=== PATIENT | female | born 1985 | race Caucasian/White ===

== ENCOUNTER 2016-08-02 05:37 | Emergency (ER) | payer MEDICAID ==
[~2016-08-02] VITALS: Ht 147.3 cm; Wt 110.0 kg
[~2016-08-02 05:37] MED LIST: ALBU8.5H4 IH; CHOL200020 PO; IBUP-1827 PO; IBUP800T28 PO; LOPE2TAB32 PO; LORA10TA7 PO; OXYC-245 PO; PRAM0.5T3 PO; PROM25TA14 PO; TRAM50TA2 PO; TRAZ-118 PO; ZONI50CA3 PO
[2016-08-02 05:38] VITALS: BP 146/96; PULSE 102; RESP 19; O2SAT 96
[2016-08-02] MEDS ORDERED: HYDROmorphone 1 mg/mL Inj IVPUSH ONE ×2 (06:20→08:15)
[2016-08-02] MEDS ORDERED: 0.9% Sodium Chloride 1,000 ML IV ONE (06:55)
[2016-08-02 07:01] LABS: Mean Corpuscular Hemoglobin 29.8 pg (27.0-35.0); Mean Corpuscular Volume 91.5 fL (81-100)
--- NOTE | 2016-08-02 07:03 | ED.REPORT ---
HPI-Abd Pain F Under 40 Date of Service Aug 02, 2016 ED Provider: Eileen Clark MD History of Present Illness: Patient is a 31 y.o. F past medical history of PCOS, OA, fibromyalgia. Present to Ed with four weeks of abdominal pain assoaciated with left ovarian cyst, increased pain in past two days. Last seen by PCP last week, who obitained a pelvic US, reported cyst 5 cm. Patient located pain to left adnexa, rated severe, rated 10/10 "makes me want to scream," "constant dull achy pain with a sharp pain every so often" without radiation. Associated with nausea, vomiting, sweating, decreased urination. Denies diarrhea, fever, chills, vaginal bleeding, discharge. Patient has tried oxycodone with relief for an hour, ibuprofen with out relief. Made wose by coughing, moving straighten legs out. Nothing makes it better. Reports two c-sections and hernia repair. LMP 4 weeks ago, patient stated she has no regular periods one every other month and lasts for few days. Patient stated this has happened before but not this bad. Patient takes OCPs started two weeks ago, no prior bith control. Nursing Notes Stated Complaint: SEVERE ABDOMINAL PAIN Chief Complaint: Female Abdominal Pain Nursing Notes Reviewed: Yes Allergies: Coded Allergies: sumatriptan (Verified Allergy, Severe, IMMOBILITY,HIVES,NECK STIFFNESS, ) TAPE (Verified Allergy, Unknown, UNKNOWN, 03/10/14) gabapentin (Verified Allergy, Unknown, 03/19/14) glyburide (Verified Allergy, Unknown, 03/19/14) topiramate (Verified Adverse Reaction, Severe, N&V,DIARRHEA, 03/10/14) Uncoded Allergies: ALMONDS (Allergy, Unknown, UNKNOWN, 07/08/13) BUTTERSCOTCH (Allergy, Unknown, UNKNOWN, 07/08/13) Penicillin (Allergy, Unknown, UNKNOWN (CEPHALOSPORINS OK), 07/08/13) OFLOXACIN EAR GTTS (Adverse Reaction, Severe, "DEAF FOR 4 DAYS", 07/08/13) Scheduled Cholecalciferol (Vitamin D3) (Vitamin D-3) 2,000 Unit Capsule 2,000 UNIT PO DAILY Loratadine (Loratadine) 10 Mg Tablet 10 MG PO DAILY Pramipexole Dihydrochloride (Mirapex) 0.5 Mg Tablet 0.5 MG PO PM Trazodone (Trazodone) 100 Mg Tablet 100 MG PO HS Zonisamide (Zonisamide) 50 Mg Capsule 50 MG PO BID Scheduled PRN Albuterol HFA (Albuterol HFA) 8.5 Gm Hfa.aer.ad 1-2 PUFF IH Q 4-6HRS PRN PRN PRN For Shortness of Breath Ibuprofen (Ibuprofen) 800 Mg Tablet 800 MG PO TID PRN PRN For Pain Ibuprofen (Ibuprofen) 600 Mg Tablet 600 MG PO QID PRN PRN For Pain Loperamide (Loperamide) 2 Mg Tablet 2 MG PO PRN PRN PRN For Diarrhea or Loose Stool Naproxen (Naprosyn) 500 Mg Tablet 500 MG PO BID PRN PRN For Pain Oxycodone HCl/Acetaminophen (Percocet 10-325 mg Tablet) 1 Each Tablet 1 EACH PO Q4 PRN PRN For Pain Promethazine (Promethazine) 25 Mg Tablet 25 MG PO Q 4-6HRS PRN PRN For Nausea Tramadol (Tramadol) 50 Mg Tablet 50-100 MG PO Q 8HRS PRN PRN For Pain oxyCODONE-Acetaminophen 10-325 mg (oxyCODONE-Acetaminophen 10-325 mg) 1 Each Tablet 1 TABLET PO Q6H PRN PRN For Pain General Time Seen by MD: 06:10 Chief Complaint Abdominal pain, Pelvic pain Hx Obtained From: Patient, Spouse Arrived By: Walk-in Onset Occurred: 2 days ago Symptom Duration: Since onset Progression since Onset: Gradually worsening Location: : LLQ: Lower-adnexal region L Quality: Cramping, Dull, Sharp Radiation: : Does not radiate Severity: Current: Pain level 10 out of 10 Severity: Maximum: Pain level 10 out of 10 Recent Healthcare: Recent doctor visit (one week prior) Risk Factors Ectopic Risk Stratification History of Infertility Prior EctopicNo History PID, No Tubal Ligation Past Medical History Past Medical History Osteoarthritis DDD Chronic back pain Fibromyalgia PCOS Reports: Diabetes mellitus Reports: Seizure disorder Past Surgical History hernia repair breast reduction Reports: , Cholecystectomy Smoking History Former Smoker Social History Drug Use: THC Other Social History: Good social support, Local resident Ambulatory Status Independent Review of Systems Basic Review of Systems Eyes: Vision NL ENT: Hearing NL Hematologic: No bleeding, No bruising Constitutional: Reports: Chills, Fatigue Respiratory: Reports: Non-productive cough, Denies: Dyspnea on exertion Cardiovascular: Denies: Chest pain, Palpitations, Syncope GI: Reports: Abdominal pain, Nausea, Vomiting, Denies: Diarrhea Female: Reports: Pelvic pain, Urination decreased, Denies: Dysuria, Incontinence, Vaginal bleeding - abnl, Vaginal discharge Complete sys rev & neg: except as marked. Physical Exam Initial Vital Signs Vital Signs (First) Date Time Temp Pulse Resp B/P Pulse Ox O2 Delivery O2 Flow Rate FiO2 08/02/16 05:38 36.4 102 19 146/96 96 Room Air Head / Eyes: Atraumatic, Normocephalic, PERRL ENT: Mucous membranes moist, Conjunctiva normal, No scleral icterus Neck: Supple, Non-tender, Full range of motion Abdomen: Soft Tenderness/Guarding/Rebound: Positive: Guarding involuntary, Tender LLQ..., Negative: Recinos's sign positive, Rebound diffuse, Rebound localized, Tender epigastric Bowel Sounds / Distention: Positive: Bowel sounds hyperactive Interpretation & Diagnostics Lab Results Interpretation Result Diagram: 08/02/16 0600 Test 08/02/16 06:00 White Blood Count 13.9th/mm3 (3.8-10.1) Red Blood Count 4.96mil/mm3 (3.90-5.20) Hemoglobin 14.8g/dL (12.0-15.6) Hematocrit 45.4% (35.0-46.0) Mean Corpuscular Volume 91.5fL (81-100) Mean Corpuscular Hemoglobin 29.8pg (27.0-35.0) Mean Corpuscular Hemoglobin Concent 32.6% (32.0-37.0) Red Cell Distribution Width 13.8% (12.3-15.4) Platelet Count 285bil/L (150-400) US Focused non-OB Pelvis Pelvic U/S IMPRESSION: Involuting previously large left ovarian cyst, now measuring only 2.1 cm in maximal dimension. The quality of visualization is somewhat limited by patient body habitus. When compared to the prior ultrasound 07/13/16 there is better visualization of the endometrial canal, likely due to a later phase in the menstrual cycle, and showing no underlying mass lesion or abnormal fluid collection. Dictated by: Harlan Turk M.D. on 08/02/2016 at 8:24 Approved by: Harlan Turk M.D. on 08/02/2016 at 8:28 Exam Performed by: Radiologist Re-Eval/Medical Decision Med Decision/Clinical Course Med Decision/Clinical Course: Patient is a 31 y.o. F past medical history of PCOS, OA, fibromyalgia. Present to Ed with four weeks of abdominal pain assoaciated with left ovarian cyst, increased pain in past two days. Exam was significant for exquisit tenderness to palpation of left adenexa. CBC showed white count elevation, stable H/H. Pelvic U/s showed decrease in size of cyst with no free fluid. DDX Left ovarian cyst, ovarian cyst rupture, ovarian torsion, ectopic , PID We will order a CBC, UA, Urine screen, pelvic US, orthostatics 1 mg Hydromorphone IV push for pain 30 mg Ketorolax IV push for pain 1200 form call from pharmacy. Attempted Percocet prescription #30. Turns out patient has a pain contract and had 120 Percocet filled yesterday. This patient did not disclose this information have instructed the pharmacist to not fill prescription written today. Can certainly use her chronic Percocet to help with her chronic pain. Source of Hx: Old records Summary of Info: Pelvic U/S from [facility] showed presence of left ovarian cyst measureing aproximately 5 cm. Re-Evaluation/Progress : Time of Eval: 08:40 )( Re-Eval Abdomen: Tenderness, Guarding Patient Status: Mild relief Re-Evaluation/Progress Note: CBC: WBC 13.9 Hgb 14.8 Hct 45.4 Counseled Regarding: Diagnosis, Lab results, Need for follow-up, When/why to return to ED Discharge & Departure Primary Impression: Ovarian cyst Laterality: left Qualified Code: N83.20 - Unspecified ovarian cysts Disposition: Home Additional Instructions: During you visit to [facility] Emergency Department we obtained blood work for infectious markers, hemoglobin levels, and electrolytes. We obtained ultrasound of your pelvis to determine if there was any change in the ovarian cyst. All your lab values were within normal limits and your imaging showed no acute processes or abnormalities. Your vital signs were stable and safe for discharge. We will send you home with - Pain medications Percocet 10-325 mg by mouth every 6 hours as needed for pain count 30 - Naproxen for pain twice daily - Nausea medications Zofran for nausea When taking Percocet pain medications DO NOT drive, DO NOT drink alcohol, DO NOT take extra acetaminophen (Tylenol). Do not hesitate to call emergency services or your primary care physician if you experience any of the following. - High unrelenting fevers. - Uncontrolled vomiting. - Severe hypertension. - Syncope or loss of consciousness. - Chest pain or severe shortness of breath. Follow up with your primary care physician in 1-2 weeks time following your emergency department visit for medication checks and general well-being. Follow up with [facility] in 1-2 weeks. Referrals: Beryl Caldera MD (PCP) [facility] Attending Statment Patient seen and examined. Acute worsening of known ovarian cyst. Ultrasound shows the cyst is actually smaller suggesting possible rupture however there is no free fluid in the pelvis and no signs of intraperitoneal hemorrhage. Increased pain control and refer patient back to PCP. Agree with above. copies to: Beryl Caldera MD, AARON J DO Aug 02, 2016 06:35 Eileen Clark MD Aug 02, 2016 09:22
[2016-08-02] MEDS ORDERED: HYDROmorphone 0.5 mg/0.5 mL iSecure Syringe IVPUSH PRN (08:15)
--- NOTE | 2016-08-02 08:30 | DRSVH ---
PROCEDURE: US PELVIC SONOGRAM + TRANSVAGINAL SONOGRAM INDICATIONS: ? rupturing ovarian cyst - see US 1 wk ago at [place] TECHNIQUE: Real-time scanning was performed of the pelvic organs, with image documentation. Additional endovagi nal scanning was necessary due to incomplete visualization of the adnexal and endometrial structures by transabdominal scanning. COMPARISON: [facility], US, US PELVIS W/ TRANSVAGINAL, 07/13/2016, 9:00 AM. FINDINGS: (orthogonal measurements) Uterus size: 6.09 cm, 3.20 cm, 4.08 cm Endometrium thickness: 5.40 mm Right ovary size: 1.97 cm, 1.31 cm, 3.15 cm Left ovary size: 1.98 cm, 1.68 cm, 3.40 cm. The previously present large left ovarian cyst has dimi nished in size, from approximately 5 cm now measuring only 2.1 x 1.8 x 1.6 cm. Transabdominal scanning: Limited scanning through the kidneys shows no hydronephrosis. No pathologi c free abdominal or pelvic fluid. Endovaginal scanning: Uterus: Uterus is normal in size and appearance. Endometrium is within normal physiologic limits. Ovaries: Within normal physiologic limits. IMPRESSION: Involuting previously large left ovarian cyst, now measuring only 2.1 cm in maximal dimen audra. The quality of visualization is somewhat limited by patient body habitus. When compared to the prior ultrasound 07/13/16 there is better visualization of the endometrial canal, likely due to a later phase in the menstrual cycle, and showing no underlying mass lesion or abnorma l fluid collection. Dictated by: Harlan Turk M.D. on 08/02/2016 at 8:24 Approved by: Harlan Turk M.D. on 08/02/2016 at 8:28
[2016-08-02] MEDS ORDERED: NAPR500T PO (08:50)
[2016-08-02] MEDS ORDERED: OXYC-466 PO (08:51)
[2016-08-02 09:15] VITALS: BP 113/65; PULSE 97; RESP 22; O2SAT 95
[2016-08-02 09:20] VITALS: BP 144/105; PULSE 88; RESP 26; O2SAT 95
[2016-08-02 09:44] VITALS: BP 137/90; PULSE 85; RESP 16; O2SAT 95
[2016-08-03] MEDS ORDERED: ONDA4TAB9 PO (18:00)
== END 2016-08-02 09:45 | disposition home or self-care (01) ==
LOC: SED 05:37
DX: N83.202 Unspecified ovarian cyst, left side (principal); E11.9 Type 2 diabetes mellitus without complications; Z87.891 Personal history of nicotine dependence; Z90.49 Acquired absence of other specified parts of digestive tract; Z88.8 Allergy status to other drugs, medicaments and biological substances
CPT/HCPCS: 36415; 76830; 76856; 85027; 96374; 96375; 96376; 99285; J1170

== ENCOUNTER 2016-08-03 14:06 | Emergency (ER) | payer MEDICAID ==
[~2016-08-03] VITALS: Ht 147.3 cm; Wt 110.0 kg
[~2016-08-03 14:06] MED LIST changes: +NAPR500T PO; +OXYC-466 PO
[2016-08-03 14:16] VITALS: BP 150/100; PULSE 98; RESP 22; O2SAT 96
--- NOTE | 2016-08-03 16:07 | ED.REPORT ---
HPI-Abd Pain F Under 40 Date of Service Aug 03, 2016 ED Provider: MD Jay This is a 31 year old female with a history of fibromyalgia, DM, PCOS, chronic back pain, osteoarthritis, and recent ovarian cyst diagnosis presenting to the ED with worsening LLQ abdominal pain. Pt seen in the ED yesterday and diagnosed with ovarian cyst, pt returned for persistent pain. She describes constant pain that is stabbing at times with radiation to the back. Associated symptoms include nausea and vomiting. Denies fever, chills, diarrhea, dysuria, or hematuria. Prescribed Percocet has not provided pain relief. Nursing Notes Stated Complaint: OVARIAN PAIN Chief Complaint: Female Abdominal Pain Nursing Notes Reviewed: Yes Allergies: Coded Allergies: sumatriptan (Verified Allergy, Severe, IMMOBILITY,HIVES,NECK STIFFNESS, ) TAPE (Verified Allergy, Unknown, UNKNOWN, 03/10/14) gabapentin (Verified Allergy, Unknown, 03/19/14) glyburide (Verified Allergy, Unknown, 03/19/14) topiramate (Verified Adverse Reaction, Severe, N&V,DIARRHEA, 03/10/14) Uncoded Allergies: ALMONDS (Allergy, Unknown, UNKNOWN, 07/08/13) BUTTERSCOTCH (Allergy, Unknown, UNKNOWN, 07/08/13) Penicillin (Allergy, Unknown, UNKNOWN (CEPHALOSPORINS [place]), 07/08/13) OFLOXACIN EAR GTTS (Adverse Reaction, Severe, "DEAF FOR 4 DAYS", 07/08/13) Scheduled Cholecalciferol (Vitamin D3) (Vitamin D-3) 2,000 Unit Capsule 2,000 UNIT PO DAILY Loratadine (Loratadine) 10 Mg Tablet 10 MG PO DAILY Pramipexole Dihydrochloride (Mirapex) 0.5 Mg Tablet 0.5 MG PO PM Trazodone (Trazodone) 100 Mg Tablet 100 MG PO HS Zonisamide (Zonisamide) 50 Mg Capsule 50 MG PO BID Scheduled PRN Albuterol HFA (Albuterol HFA) 8.5 Gm Hfa.aer.ad 1-2 PUFF IH Q 4-6HRS PRN PRN PRN For Shortness of Breath Ibuprofen (Ibuprofen) 800 Mg Tablet 800 MG PO TID PRN PRN For Pain Ibuprofen (Ibuprofen) 600 Mg Tablet 600 MG PO QID PRN PRN For Pain Loperamide (Loperamide) 2 Mg Tablet 2 MG PO PRN PRN PRN For Diarrhea or Loose Stool Naproxen (Naprosyn) 500 Mg Tablet 500 MG PO BID PRN PRN For Pain Ondansetron ODT (Zofran ODT) 4 Mg Tablet 4 MG PO Q4H PRN PRN For Nausea Oxycodone HCl/Acetaminophen (Percocet 10-325 mg Tablet) 1 Each Tablet 1 EACH PO Q4 PRN PRN For Pain Promethazine (Promethazine) 25 Mg Tablet 25 MG PO Q 4-6HRS PRN PRN For Nausea Tramadol (Tramadol) 50 Mg Tablet 50-100 MG PO Q 8HRS PRN PRN For Pain oxyCODONE-Acetaminophen 10-325 mg (oxyCODONE-Acetaminophen 10-325 mg) 1 Each Tablet 1 TABLET PO Q6H PRN PRN For Pain General Time Seen by MD: 16:07 Chief Complaint Pelvic pain Hx Obtained From: Patient Arrived By: Walk-in Sudden in Onset?: Yes Onset Occurred: Yesterday Symptom Duration: Since onset Severity: Current: Moderate Pertinent Negative: Pt denies other symptoms Recent Healthcare: Recent doctor visit Similar Sx Previous: Yes Past Medical History Past Medical History Osteoarthritis DDD Chronic back pain Fibromyalgia PCOS Reports: Diabetes mellitus Reports: Seizure disorder Past Surgical History hernia repair breast reduction Reports: , Cholecystectomy Smoking History Former Smoker Social History Drug Use: THC Other Social History: Good social support, Local resident Ambulatory Status Independent Review of Systems Constitutional: Denies: Chills, Fever GI: Reports: Abdominal pain, Nausea, Vomiting, Denies: Constipation, Diarrhea Female: Reports: Flank pain, Denies: Dysuria Complete sys rev & neg: except as marked. Physical Exam Initial Vital Signs Vital Signs (First) Date Time Temp Pulse Resp B/P Pulse Ox O2 Delivery O2 Flow Rate FiO2 08/03/16 14:16 37.2 98 22 150/100 96 Room Air Initial VS: Reviewed Head / Eyes: Atraumatic, Normocephalic, PERRL Neck: Supple, Non-tender, Full range of motion Extremities: Vascular intact, Neuro intact, No swelling, No tenderness Skin: Warm, Dry, No cyanosis Neurologic: Alert, Oriented, Nonfocal Psychiatric: Mood/affect normal, Behavior normal, Normal thought content General/Constitutional: Awake, Alert Tearful, morbidly obese, edentulous Respiratory / Chest: Breath sounds NL, Breath sounds = bilat, No respiratory distress, No rales, No rhonchi, No wheezing Cardiovascular: Heart rate NL, Regular rhythm, Heart sounds NL, Peripheral circulation NL Abdomen: No rebound, BS normoactive Tenderness/Guarding/Rebound: Positive: Tender LLQ... (Moderate) Small ecchymosis on anterior pannus Back: Full range of motion, No midline vertebral tend Flank / Spine / Paraspinal: Positive: Flank tender L Interpretation & Diagnostics Interpretation & Diagnostics: CT KUB IMPRESSION: 1. Nonobstructive right nephrolithiasis. No left nephrolithiasis, hydronephrosis, hydroureter, or ureterolithiasis. 2. Hepatomegaly and hepatic steatosis. 3. Normal appendix. Dictated by: Kerry Molina M.D. on 08/03/2016 at 16:56 Approved by: Kerry Molina M.D. on 08/03/2016 at 17:02 Lab Results Interpretation Result Diagram: 08/03/16 1715 08/03/16 1715 Test 08/03/16 16:32 08/03/16 17:15 08/03/16 17:20 Urine Color Yellow (YELLOW) Urine Appearance Clear (CLEAR,HAZY) Urine pH 6.5 (5.0-8.0) Urine Specific [place] 1.025 (1.003-1.035) Urine Protein 30mg/dL (NEG,TRACE) Urine Glucose (UA) 1000mg/dL (NEGATIVE) Urine Ketones Negativemg/dL (NEGATIVE) Urine Occult Blood Moderate (NEGATIVE) Urine Nitrite Negative (NEGATIVE) Urine Bilirubin Negative (NEGATIVE) Urine Urobilinogen Normalmg/dL (NORMAL) Urine Leukocyte Esterase Negative (NEGATIVE) Urine RBC 11-50/hpf (0-2) Urine WBC 0-5/hpf (0-5) Urine Epithelial Cells Many/hpf (NONE-MOD) Urine Crystals None seen (NONE SEEN) Urine Bacteria Moderate/hpf (NONE-FEW) Urine Hyaline Casts None/lpf (NONE) Urine Granular Casts None seen (NONE SEEN) Urine Waxy Casts None seen (NONE SEEN) Urine Red Blood Cell Casts None seen (NONE SEEN) Urine White Blood Cell Casts None seen (NONE SEEN) Urine Mucus None seen (None Seen) Urine Trichomonas None seen (NONE SEEN) Urine Yeast Moderate (NONE SEEN) Urinalysis Comment None Urine Culture Reflexed Indicated White Blood Count 12.8th/mm3 (3.8-10.1) Red Blood Count 4.71mil/mm3 (3.90-5.20) Hemoglobin 14.1g/dL (12.0-15.6) Hematocrit 42.8% (35.0-46.0) Mean Corpuscular Volume 90.9fL (81-100) Mean Corpuscular Hemoglobin 29.9pg (27.0-35.0) Mean Corpuscular Hemoglobin Concent 32.9% (32.0-37.0) Red Cell Distribution Width 13.6% (12.3-15.4) Platelet Count 269bil/L (150-400) Neutrophils (%) (Auto) 63.6% (40-74) Lymphocytes (%) (Auto) 29.5% (14-46) Monocytes (%) (Auto) 4.0% (4-12) Eosinophils (%) (Auto) 2.3% (0-5) Basophils (%) (Auto) 0.2% (0-3) Sodium Level 141mEq/L (134-144) Potassium Level 3.8mEq/L (3.5-5.2) Chloride Level 104mEq/L (97-108) Carbon Dioxide Level 20mmol/L (18-29) Blood Urea Nitrogen 14mg/dL (6-20) Creatinine 0.50mg/dL (0.57-1.00) Estimat Glomerular Filtration Rate 205mL/min (>59) Glucose Level 202mg/dL (60-99) Calcium Level 8.7mg/dL (8.5-10.1) Total Bilirubin 0.2mg/dL (0.0-1.2) Aspartate Amino Transf (AST/SGOT) 15U/L (0-50) Alanine Aminotransferase (ALT/SGPT) 16U/L (0-32) Alkaline Phosphatase 76U/L (25-150) Total Protein 6.8g/dL (6.4-8.4) Albumin 3.6g/dL (3.4-5.0) Lipase 47U/L (13-60) Hold Saldivar Top Tube Received (Received) Re-Eval/Medical Decision Med Decision/Clinical Course 31-year-old female with past medical history of PCOS, fibromyalgia, diagnosis yesterday of involuting ovarian cyst here with worsening left lower quadrant pain. Differential diagnosis includes but is not limited to worsening ovarian cyst versus pain medication seeking behavior versus kidney stone versus pyelonephritis. Urinalysis is positive for red blood cells, however, there is no evidence of UTI. CT KUB shows right-sided nonobstructive nephrolithiasis but nothing on the left. Patient has a pain contract and 2 days ago was prescribed 120 Percocet. She was given Toradol in the emergency department with some relief. I have given her a prescription of Zofran to go home with, and I advised her to follow up with her primary care physician. She is aware and amenable to discharge. Re-Evaluation/Progress : Time of Eval: 17:57 Re-Evaluation/Progress Note: Discussed lab and imaging results and plan for d/c, all questions addressed. Consultation : Referral / Consult Name: Ashley Lua MD Call Returned at: 16:27 Crew Boss: Agrees with eval, Agrees with plan Note: Consult with pt's OBGYN. Counseled Regarding: Diagnosis, Lab results, Need for follow-up, When/why to return to ED Discharge & Departure Primary Impression: Abdominal pain Abdominal location: unspecified location Qualified Code: R10.9 - Unspecified abdominal pain Disposition: Home Discharge Condition All VS Reviewed: Yes Condition: Stable Patient Instructions: Acute Abdominal Pain (ED) Additional Instructions: Continue previously prescribed medications. Take Zofran as prescribed for nausea control. Follow-up with your primary care provider. Return to the emergency department if you develop any new or worsening symptoms. Referrals: Beryl Caldera MD (PCP) Scribe Attestation Portions of this note were transcribed by Brigitte Gallardo. I, Dr. Thompson personally performed the history, physical exam and medical decision-making; I reviewed and confirmed the accuracy of the information in the transcribed note. Signed by: Brigitte Gallardo. 08/03/2016, 23:00. Kayleigh Thompson MD Aug 03, 2016 16:07 BRIGITTE GALLARDO Aug 03, 2016 16:12
[2016-08-03 16:52] LABS: APPEARANCE,URINE CLEAR (CLEAR,HAZY); COLOR,URINE YELLOW (YELLOW); OCCULT BLOOD,URINE MODERATE (NEGATIVE); PH,URINE 6.5 (5.0-8.0); UROBILINOGEN,URINE NORMAL (NORMAL)
[2016-08-03 16:53] LABS: YEAST,URINE MODERATE (NONE SEEN)
--- NOTE | 2016-08-03 17:04 | DRSVH ---
PROCEDURE: CT KUB ([id number]) INDICATIONS: left flank pain TECHNIQUE: Noncontrast 5 mm thick sections acquired from the diaphragms to the symphysis. 5 mm thick coronal an d sagittal reformats were then performed. For radiation dose reduction, the following was used: aut omated exposure control, adjustment of mA and/or kV according to patient size. COMPARISON: [facility], CT, KUB - CT ([facility] [place]), 07/09/2009, 17:36. FINDINGS: Image quality: Excellent. Lung bases: Lung bases are clear. Heart size is normal. Urinary system: Both kidneys are normal in size. A 3 mm diameter nonobstructing calculus is present in the right kidney. No left nephrolithiasis. The bilateral ureters demonstrate normal course and gabriel iber. No ureteral lithiasis. The bladder is partially fluid-filled and thin-walled. No bladder calcul i. No hydronephrosis or perinephric fat stranding. Both ureters appear non-dilated throughout their expected courses. Bladder wall thickness is normal; no calcified bladder stones. The uterus and ova latanya are grossly unremarkable. Other solid organs: The liver is enlarged and is diffusely hypodense. The spleen is normal size. Gall bladder is surgically absent. Pancreas is normal in contours. No adrenal nodules. Peritoneum and bowel: Unenhanced bowel loops demonstrate normal wall thickness and caliber. The appe ndix is thin walled and gas filled. No free fluid or air. Nodes and vessels: No retroperitoneal or mesenteric adenopathy by size criteria. Aorta and inferior vena cava are normal in caliber. Abdominal wall: No ventral hernias. Pelvis: No free pelvic fluid. No inguinal hernias. There are bilateral borderline enlarged inguinal lymph nodes similar in size to the study dated 07/09/09. Bones: No suspicious bony lesions. There is sclerosis of the right sacroiliac joint unchanged from t he study dated 07/09/09. No compression deformities. IMPRESSION: 1. Nonobstructive right nephrolithiasis. No left nephrolithiasis, hydronephrosis, hydroureter, or ure terolithiasis. 2. Hepatomegaly and hepatic steatosis. 3. Normal appendix. Dictated by: Kerry Molina M.D. on 08/03/2016 at 16:56 Approved by: Kerry Molina M.D. on 08/03/2016 at 17:02
[2016-08-03 17:23] LABS: BASOPHILS % (AUTO) 0.2 % (0-3); EOSINOPHILS % (AUTO) 2.3 % (0-5); Mean Corpuscular Hemoglobin 29.9 pg (27.0-35.0); Mean Corpuscular Volume 90.9 fL (81-100); NEUTROPHILS % (AUTO) 63.6 % (40-74); Platelet Count 269 bil/L (150-400)
[2016-08-03] MEDS ORDERED: ONDA4TAB9 PO (18:00)
[2016-08-03 18:12] VITALS: BP 142/92; PULSE 90; RESP 12; O2SAT 93
[2016-08-03 18:13] VITALS: BP 142/92; PULSE 93; RESP 22; O2SAT 96
== END 2016-08-03 18:14 | disposition home or self-care (01) ==
LOC: SED 14:06
DX: R10.32 Left lower quadrant pain (principal); R11.2 Nausea with vomiting, unspecified; M79.7 Fibromyalgia; E11.9 Type 2 diabetes mellitus without complications; Z87.891 Personal history of nicotine dependence; Z88.8 Allergy status to other drugs, medicaments and biological substances; Z91.048 Other nonmedicinal substance allergy status